=== PATIENT | female | born 1990 | race African-American/Black ===

== ENCOUNTER 2019-05-06 09:27 | Emergency (ER) | payer OTHER ==
[~2019-05-06] VITALS: Ht 160 cm; Wt 61.4 kg
[2019-05-06] MEDS ORDERED: prenatal vit (09:37)
--- NOTE | 2019-05-06 11:24 | REP ---
FIRST TRIMESTER ULTRASOUND: Real-time sonographic evaluation of the gravid uterus performed utilizing transabdominal and endovaginal technique. There is a single living intrauterine gestation, the estimated gestational age is 5 weeks 6 days based on a crown-rump length of 3 mm, EDC 12/31/2019. heart rate 117 beats per minute. There is no subchorionic hemorrhage. Cystic structure of the right ovary probably represents a corpus luteum 1.9 cm in diameter. There is no evidence of ovarian torsion. Electronically Signed by Marito Holcomb MD 05/07/2019 08:01 A
[2019-05-06 11:47] VITALS: BP 116/70
== END 2019-05-06 11:58 | disposition home or self-care (01) ==
LOC: EDBD 09:27 → M ED 09:27
DX: O99.89 Other specified diseases and conditions complicating pregnancy, childbirth and the puerperium (principal); R10.2 Pelvic and perineal pain; Z3A.01 Less than 8 weeks gestation of pregnancy

== ENCOUNTER 2019-10-16 09:50 | Outpatient (CLI) | payer OTHER ==
[~2019-10-16] VITALS: Ht 160 cm; Wt 74.0 kg
[~2019-10-16 09:50] MED LIST: prenatal vit
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
== END 2019-10-16 17:17 | disposition home or self-care (01) ==
LOC: M LDO 09:50
PROVIDERS: ATTEND Obstetrics & Gynecology
DX: O9A.213 Injury, poisoning and certain other consequences of external causes complicating pregnancy, third trimester (principal); Z3A.29 29 weeks gestation of pregnancy; T14.90XA Injury, unspecified, initial encounter; V49.40XA Driver injured in collision with unspecified motor vehicles in traffic accident, initial encounter
CPT/HCPCS: 59025; G0378; G0463

== ENCOUNTER 2019-12-25 04:34 | Inpatient (IN) | payer OTHER ==
[~2019-12-25] VITALS: Ht 162.6 cm; Wt 77.0 kg
[~2019-12-25 04:34] MED LIST changes: +KETOROLAC 30 MG/ML VIAL (J1885) IV SCH
[2019-12-25 05:03] VITALS: BP 105/59
[2019-12-25] MEDS ORDERED: LR 1,000 ML IV ONE (06:45)
[2019-12-25] MEDS ORDERED: LACTATED RINGER'S 1000 ML IV SCH (07:00)
[2019-12-25 07:50] VITALS: BP 108/59
[2019-12-25] MEDS: LR 1,000 ML IV SCH ×2 (07:50→13:20)
--- NOTE | 2019-12-25 07:54 | HPE ---
DATE OF ADMISSION: 12/25/2019 29-year-old, 3, para 1, abortio 1, last menstrual period (LMP) 03/22/2019, expected date of confinement (EDC) 12/27/2019, at 39 and 5 weeks of gestation who came in with history of contractions, no loss of fluid, no vaginal bleeding. She has a history of previous section and requested a trial of labor after (TOLAC). Risk factors are she has had a previous section for failure to descend and she is an AGDM 1. PAST HISTORY: In 2017, at 39 and 5 weeks, section, female, 3800 grams, high presenting part not in the pelvis. In 2019, spontaneous . LABS: B+, HIV negative, hepatitis negative, RPR negative, rubella immune, varicella immune. Pap normal. Urine negative. GBS negative. 1-hour glucose was 149. 3-hour GTT fasting was 79, 1-hour 182, 2-hour 159, and 3-hour 72. Gonorrhea and chlamydia are negative. EXAMINATION: She appears distressed. Symphysis fundus height is 40. Scar is intact. On pelvic examination, there is nothing in the pelvis, very posterior, finger to 1-2 cm. No loss of fluid or vaginal bleeding. We in fact did an ultrasound with the vertex to the patient's left, it is not in the pelvis. AMBIKA in three quadrants was normal. She was unable to void for the last hour and a half that she was here. When she did void, she has 3+ ketones, pH of 5 and blood. Her blood pressure is 102/59, respirations are 16, pulse is 107, and temperature 97.8. DIAGNOSIS: She is significantly dehydrated. Eventually, when she did void it is bright orange. PLAN: Our plan is to hydrate her with an IV and continue IV fluids until her ketones are negative. Should her contractions settle down, we will discharge her. Her due date is 12/27/2019. She will be seen in the office for induction of labor at 41 weeks. If she continues to contract and makes any kind of progress, she will be kept in house.
[2019-12-25 10:16] VITALS: BP 115/65
--- NOTE | 2019-12-25 12:12 | IPNPDOC ---
Text Note Date of Service The patient was seen on 12/25/19. NOTE patient is a 29 yo @ 39+5wks currently under observation for contractions. patient i having regular painful contraction. history of prior section. Patient initially desires TOLAC. This am patient is having painful contractions and she no longer desires to labor. She desires to have repeat section. vitals: normal having painful contractions fht: 145/mod heather/pos accel/no decel toco: ctx q 2-3mins ce: /high a/p Patient in early labor. discussed s/s to return. Schedule for repeat section. DO Farheen VS,Doylebone, I+O VS, Fishbone, I+O Vital Signs Date Time Temp Pulse Resp B/P (MAP) Pulse Ox O2 Delivery O2 Flow Rate FiO2 12/25/19 10:16 98.7 115 16 115/65 (82) FABIÁN BAEZ DO Dec 25, 2019 12:12
[2019-12-25 13:19] VITALS: BP 114/63
[2019-12-25] MEDS ORDERED: BICITRA 30ML SOLN UDC PO ONE (14:15)
[2019-12-25] MEDS ORDERED: ceFAZolin SOD 2 GM in IV 1 EA IV ONE (14:15)
[2019-12-25 14:32] LABS: HEMATOCRIT 38.9 % (36.0-47.0); HEMOGLOBIN 12.8 g/dl (12.0-15.5); MEAN CORPUSCULAR HEMOGLOBIN 32.8 pg (27.0-33.0); MEAN CORPUSCULAR HGB CONC 32.9 g/dl (32.0-36.5); MEAN CORPUSCULAR VOLUME 99.7 fl (80.0-96.0); PLATELET COUNT, AUTOMATED 180 10^3/uL (150-450); WHITE BLOOD COUNT 9.4 10^3/uL (4.0-10.0)
[2019-12-25] MEDS ORDERED: BUTORPHANOL 2 MG/ML INJ (J0595) IV ONE (15:15)
[2019-12-25] MEDS ORDERED: PROMETHAZINE INJ 25 MG/ML VIAL (J2550) IV ONE (15:15)
--- NOTE | 2019-12-25 15:29 | HPEPDOC ---
Obstetrical History & Physical General Date of Admission Dec 25, 2019 at 12:42 History of Present Illness patient is a 29 yo @39+5wks gestation with history of prior delivery desiring repeat delivery. patient reports regular painful contractions. denies LOF/VB. 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 BREAST: . ABDOMEN: Gravid and non-tender to touch. FETUS: Is vertex (VTX) by sterile vaginal examination (SVE), fetus is vertex (VTX) by Alberto. HEART RATE: Regular rate and rhythm. LUNGS: Clear to auscultation (CTA). EXTREMITIES: No edema/erythema/tenderness EFW: 3600gm Vital Signs/I&O Vital Signs Date Time Temp Pulse Resp B/P (MAP) Pulse Ox O2 Delivery O2 Flow Rate FiO2 12/25/19 10:16 98.7 115 16 115/65 (82) Laboratory Data 24H LABS Laboratory Tests 2 12/25/19 13:47: Serology Scanned Report Hepatitis B Testing 12/25/19 14:23: Nucleated Red Blood Cells % (auto) 0.0 CBC/BMP Laboratory Tests 12/25/19 14:23 Pertinent Laboratoy Data Blood Type: B+ RBC Antibody Screen: Negative HIV: Unknown Hepatitis B: Negative Rapid Plasma Reagin: Nonreactive Rubella: Immune Varicella: Immune Chlamydia/Gonorrhea: Negative Group B Streptococcus: Negative Glucose Tolerance Test: 149 (3hr: 79:182: 159:72) Anatomy Ultrasound Placenta Location: Anterior Vaginal Examination Dilation: 1cm Effacement: 80% Station: -2 Cervical Consistency: Soft Cervical Position: Posterior Presentation: Cephalic presentation Assessment Heart Rate (FHR): 145 Variability: Moderate Accelerations: Positive Decelerations: None Tocometer Frequency: every 1-5 min., every 2-5 min. Assessment/Plan Assessment patient is a 29 yo @ 39+5wks with h/o prior delivery desiring repeat delivery. Discussed with patient slower recovery with section. Risk of infection, bleeding requiring blood transfusion, injuring to surrounding organs, hysterectomy, need for repeat surgery and chronic pain discussed with patient. Plan Admit and orient. Mh Teacher and consent. Diet: NPO Group B Streptococcus (GBS) [negative]. Labs and intravenous (IV) per unit protocol. Ancef for antibiotic anesthesia consult back to OR once patient and team ready. FABIÁN BAEZ DO Dec 25, 2019 15:29
[2019-12-25] MEDS ORDERED: MORPHINE PRES-FREE INJ 10 MG/10 ML VIAL (J2274) As Ordered ONE (19:52)
[2019-12-25] MEDS ORDERED: OXYTOCIN INJ 10 UNITS/ML VIAL (J2590) As Ordered ONE (19:52)
[2019-12-25] MEDS ORDERED: METOCLOPRAMIDE INJ 10MG/2ML VIAL (J2765) IV PRN (20:13)
[2019-12-25] MEDS ORDERED: NALOXONE INJ 0.4 MG/1 ML VIAL (J2310) IV PRN ×2 (20:13)
[2019-12-25] MEDS ORDERED: ONDANSETRON 4MG/2ML VIAL (J2405) IV PRN (20:13)
[2019-12-25] MEDS ORDERED: NALBUPHINE HCL 10 MG/ML AMP (J2300) IV PRN (20:13)
[2019-12-25] MEDS ORDERED: diphenhydrAMINE INJ 50MG/ML VIAL (J1200) IV PRN (20:13)
[2019-12-25] MEDS ORDERED: dexameTHASONE 4 MG/ML 1ML VIAL (J1100) As Ordered ONE (20:43)
[2019-12-25] MEDS ORDERED: ePHEDrine SULFATE 25 MG/5 ML(5MG/ML) SYRINGE As Ordered ONE (20:43)
[2019-12-25] MEDS ORDERED: ONDANSETRON 4MG/2ML VIAL (J2405) As Ordered ONE (20:43)
[2019-12-25] MEDS ORDERED: KETOROLAC 60 MG/2 ML VIAL (J1885) As Ordered ONE (20:43)
[2019-12-25] MEDS ORDERED: PHENYLephrine HCL 500 MCG/5 ML (100MCG/ML) SYRINGE (J2370) As Ordered ONE (20:43)
[2019-12-25] MEDS ORDERED: OXYTOCIN DRIP 30 UNITS in IV 1 EA IV SCH (21:21)
[2019-12-25] MEDS ORDERED: MEASLES,MUMPS,RUBELLA VACCINE INJ (MMR-II) (90707) SC SCH (21:30)
[2019-12-25] MEDS ORDERED: RHOGAM 300 MCG (1500 IU) INJ (J2790) IM SCH (21:30)
[2019-12-25] MEDS ORDERED: PERCOCET 5MG/325MG TAB PO PRN ×2 (21:30)
--- NOTE | 2019-12-25 21:31 | DNPDOC ---
[facility] Delivery Note Delivery Note DATE OF DELIVERY: 12/25/2019 PREDELIVERY DIAGNOSIS: 39+5/7 weeks' gestation and labor. POST DELIVERY DIAGNOSIS: Delivered. PROCEDURE: Repeat low transverse section VISUAL MANAGER: Dr. Fabián Zhong DO ANESTHESIA: Spinal ESTIMATED BLOOD LOSS: 600mL. FINDINGS: 9 pound 3 ounce, 4170gm male , Score 9/9. DELIVERY SUMMARY: uncomplicated repeat low transverse section. see operative note for details. FABIÁN ZHONG DO Dec 25, 2019 21:31
--- NOTE | 2019-12-25 22:26 | POST-OPPD ---
Postoperative Procedure Note Date Of Procedure: Dec 25, 2019 PREOPERATIVE DIAGNOSIS: 1) Gravid at 39+5wks gestation 2) History of prior delivery desiring repeat POSTOPERATIVE DIAGNOSIS: status post delivery FINDINGS: normal appearing uterus, bilateral ovaries and fallopian tubes PROCEDURE: Repeat low transverse section SURGEON: Fabián Zhong DO COLORING MACHINE OPERATOR: Génesis Peña MD ANESTHESIA: Spinal SPECIMENS: none ESTIMATED BLOOD LOSS: 600cc REPLACED: 1600cc LR DRAINS: 100cc urine COMPLICATIONS: none POSTOPERATIVE CONDITION: stable Description of procedure: The risks, benefits, indications and alternatives to the procedure were reviewed with the patient and informed consent was obtained. Spinal anesthesia was dosed for surgical analgesic. She was prepped and draped in the normal sterile fashion in the dorsal supine position with a leftward tilt. The abdomen was entered through a pfannenstiel incision. Sharp dissection taken down to fascia layer. Fascia layer entered sharply and carried lateral and upward bilaterally. Superior border of fascia grasp with Krockers x 2 and a space between fascia and rectus muscle created bluntly and sharply. There was dense adhesions between fascia and rectus muscle. Inferior fascia layer grasp with Krockers x 2 and fascia from rectus muscle bluntly and sharply. Midline rectus muscle entered sharply with metzenbaum scissors. Peritoneum entered sharply between rectus muscles. The rectus muscles and peritoneum bluntly along midline and exposes the gravid uterus. The Mobius retractor placed intraabdominal. The vesicouterine peritoneum was identified. Vivar uterine incision made. The uterine incision was extended superolaterally. Head delivered through the hysterotomy. The anterior and posterior shoulders delivered followed by body with ease. The cord was clamped and cut. The infant was handed off to warmer. Pitocin bolus started. The placenta delivered spontaneously. Uterus exteriorized. The uterus was cleared of all clots and debris. The uterine incision was repaired with 2 layers with 0chromic in a running locking fashion and 0 monocryl imbricating layer. Hysterotomy inspected to be hemostatic. Uterus placed intraabdominal. Mobius retractor removed. The peritoneum, fascia and muscle bellies were inspected and noted to be hemostatic. The peritoneum brought back together midline with 3-0 vicryl. The fascia approximated with 0 vicryl suture in a running fashion. The subcutaneous tissue closed with 3-0 vicryl. The skin was closed with subcuticular 4-0 Monocryl. Dressing applied. The vagina was cleared of clots. Sponge laps, needle and instruments count correct x 2. Patient taken to recovery room in stable condition. FABIÁN ZHONG DO Dec 25, 2019 22:26
[2019-12-25 23:00] VITALS: BP 118/72
[2019-12-25 23:30] VITALS: BP 116/62
[2019-12-26] VITALS (8 sets, daily range): BP systolic 99–122; BP diastolic 54–72
[2019-12-26] MEDS ORDERED: miSOPROStol 200 MCG TAB (S0191) As Ordered ONE (00:17)
[2019-12-26] MEDS: KETOROLAC 30 MG/ML VIAL (J1885) IV SCH ×3 (02:02→18:03)
--- NOTE | 2019-12-26 07:09 | IPNPDOC ---
Progress Note Date of Service: Dec 26, 2019 Day#: 1 Progress Note SUBJECT: Patient is a 29 yo s/p RLTCD PPD #1. She has no concerns this AM. Pain is well controlled. She has been ambulating, and tolerating regular diet. Breast feeding without issue. Reports lochia is light. siddiqi out this am. Declined contraceptive OBJECTIVE: VITAL SIGNS: Within normal limits, afebrile. Alert and oriented times three. Abdomen: Fundus firm at U-2. Soft, NTTP. le: no edema/erythema/tenderness A/P patient pod #1, doing well. encourage bf. discussed contraceptive options and recommend 18months after ceasarean section before next . due to void later this AM. routine post operative care. anticipate d/c home ppd #2. DO Farheen VS, I&O, 24H, Fishbone Vital Signs/I&O Vital Signs Date Time Temp Pulse Resp B/P (MAP) Pulse Ox O2 Delivery O2 Flow Rate FiO2 12/26/19 06:32 97.8 75 18 111/66 (81) 100 12/25/19 21:22 Room Air I&O- Last 24 Hours up to 6 AM 12/26/19 06:00 Intake Total 5550 ml Output Total 5125 ml Balance 425 ml Laboratory Data 24H LABS Laboratory Tests 2 12/25/19 13:47: Serology Scanned Report Hepatitis B Testing 12/25/19 14:22: 12/25/19 14:23: Nucleated Red Blood Cells % (auto) 0.0 CBC/BMP Laboratory Tests 12/25/19 14:23 FABIÁN BAEZ DO Dec 26, 2019 07:09
[2019-12-26 08:15] LABS: HEMATOCRIT 35.6 % (36.0-47.0); HEMOGLOBIN 11.5 g/dl (12.0-15.5); MEAN CORPUSCULAR HGB CONC 32.3 g/dl (32.0-36.5); PLATELET COUNT, AUTOMATED 177 10^3/uL (150-450); RED BLOOD COUNT 3.49 10^6/uL (4.00-5.40); WHITE BLOOD COUNT 10.6 10^3/uL (4.0-10.0)
[2019-12-26] MEDS: PRENATAL VITAMINS CHEWABLE TABLET PO SCH (08:27)
[2019-12-26] MEDS ORDERED: KETOROLAC 30 MG/ML VIAL (J1885) As Ordered ONE (17:37)
[2019-12-26] MEDS: IBUPROFEN 800 MG TAB PO SCH (22:45)
[2019-12-27 02:24] VITALS: BP 111/67
[2019-12-27 06:15] VITALS: BP 101/58
[2019-12-27] MEDS: IBUPROFEN 800 MG TAB PO SCH (06:30)
[2019-12-27] MEDS ORDERED: IBUP80TA PO (07:06)
[2019-12-27] MEDS ORDERED: PERCOCET PO ×2 (07:06)
[2019-12-27] MEDS ORDERED: PRENCHW PO (07:06)
[2019-12-27] MEDS: PRENATAL VITAMINS CHEWABLE TABLET PO SCH (08:26)
--- NOTE | 2019-12-27 08:54 | DSES ---
DATE OF ADMISSION: 12/25/2019 DATE OF DISCHARGE: 12/27/2019 This lady is a 29-year-old, 3, para 2, was admitted in spontaneous labor, requested a trial of labor after (TOLAC) but after awhile decided she wanted to have a repeat section. She had a previous section for cephalopelvic disproportion and failure to descend. She had a repeat section live male , 9 pounds 3 ounces (4170 grams), score of 9 and 9 at one and five minutes, respectively. On her second day we discussed phlebitis, cystitis, mastitis, endometritis and cellulitis, diet, exercise, pain management, perineal, breast and wound care. Medication she was given a prescription to followup at the [facility] pharmacy. Her admitting hemoglobin was 12.8, hematocrit 38.9, and platelets were 180 and her discharge hemoglobin 11.5, hematocrit 35.6, and platelets were 177. The rest of the examination is unremarkable. She is normocephalic, atraumatic. Neck full range of motion. Pupils equal and reactive to light. Distal pulses symmetric. No evidence of deep venous thrombosis (DVT), pulmonary embolism (PE) or superficial phlebitis. Chest is clear bilaterally bases. No wheezes or rhonchi. No costovertebral angle (CVA) tenderness. Abdomen soft, uterus two below, lochia is moderate. Four quadrant bowel sounds are noted. Incision is clean and dry. No rashes, lesions or pruritus. No arthralgia or myalgia. No complaint joint pain. No complaint of cough, wheeze, shortness of breath or dyspnea on exertion. No nausea, vomiting, diarrhea or constipation. No urgency or frequency. Blood pressure on discharge is 101/58, respirations are 20, pulse 84, temperature is 98.8. The patient was given prescriptions to followup with the [facility] pharmacy. She was given a 2 week incisional check and 6 week check. She was noted to be in GDM 1, diet controlled. Therefore, she will have a repeat 1-hour glucose 50 grams at her 6 or 8 week checkup. In summary, we have a term gestation delivered a live male . Breast feeding is going well. All questions were answered. 30 minute discussion. edited: 12/29/2019 0722 cookie RESENDIZ
== END 2019-12-27 13:40 | disposition home or self-care (01) | DRG 773 ==
LOC: M LDO 04:34 → M LDI 12:42 → M OBS 22:58
PROVIDERS: ADMIT Obstetrics & Gynecology; ATTEND Obstetrics & Gynecology
PROC: 10D00Z1 Extraction of Products of Conception, Low, Open Approach (ICD-10-PCS; principal; 2019-12-25 19:16)
DX: O34.211 Maternal care for low transverse scar from previous cesarean delivery (principal); Z3A.39 39 weeks gestation of pregnancy; O24.420 Gestational diabetes mellitus in childbirth, diet controlled; E86.0 Dehydration; O99.284 Endocrine, nutritional and metabolic diseases complicating childbirth; Z37.0 Single live birth

== ENCOUNTER 2021-03-07 06:42 | Emergency (ER) | payer OTHER ==
[~2021-03-07] VITALS: Ht 160 cm; Wt 67.6 kg
[~2021-03-07 06:42] MED LIST changes: +IBUP80TA PO; -KETOROLAC 30 MG/ML VIAL (J1885) IV SCH; +PERCOCET PO; +PRENCHW PO
[2021-03-07] MEDS ORDERED: ACETAMINOPHEN 325 MG TAB PO ONE (07:45)
[2021-03-07] MEDS ORDERED: NS 1,000 ML IV ONE (07:45)
[2021-03-07 08:45] LABS: BASO # 0.1 10^3/uL (0.0-0.2); BASO % 0.8 % (0.0-1.0); EOS # 0.2 10^3/uL (0.0-0.5); EOS % 2.8 % (0.0-3.0); HEMATOCRIT 41.9 % (36.0-47.0); HEMOGLOBIN 13.3 g/dl (12.0-15.5); LYMPH # 2.6 10^3/uL (1.5-5.0); LYMPH % 43.1 % (24.0-44.0); MEAN CORPUSCULAR HGB CONC 31.7 g/dl (32.0-36.5); MONO # 0.5 10^3/uL (0.0-0.8); MONO % 8.5 % (2.0-8.0); NEUTROPHILS # 2.7 10^3/uL (1.5-8.5); NEUTROPHILS % 44.6 % (36.0-66.0); PLATELET COUNT, AUTOMATED 291 10^3/uL (150-450); RED BLOOD COUNT 4.15 10^6/uL (4.00-5.40)
[2021-03-07 09:13] LABS: HCG, SERUM QUALITATIVE NEGATIVE (NEGATIVE)
[2021-03-07 09:18] LABS: ALBUMIN 3.5 GM/DL (3.2-5.2); ALT/SGPT 26 U/L (12-78); BILIRUBIN,DIRECT 0.1 MG/DL (0.0-0.2); BILIRUBIN,TOTAL 0.2 MG/DL (0.2-1.0); BLOOD UREA NITROGEN 9 MG/DL (7-18); CALCIUM LEVEL 8.6 MG/DL (8.5-10.1); CARBON DIOXIDE LEVEL 32 MEQ/L (21-32); CHLORIDE LEVEL 106 MEQ/L (98-107); CK-MB VALUE MASS < 1.0 NG/ML (<3.6); CPK CREATINE PHOSPHOKINASE 67 U/L (26-192); GLOMERULAR FILTRATION RATE > 60.0 (>60); GLUCOSE, FASTING 96 MG/DL (70-100); LIPASE 129 U/L (73-393); MB/CK RELATIVE INDEX 1.49 (< OR =4); POTASSIUM SERUM 4.4 MEQ/L (3.5-5.1); SODIUM LEVEL 139 MEQ/L (136-145); TOTAL PROTEIN 7.3 GM/DL (6.4-8.2); TROPONIN I < 0.02 NG/ML (< 0.10)
[2021-03-07] MEDS ORDERED: KETOROLAC 30 MG/ML 1ML VIAL IV ONE (09:35)
[2021-03-07] MEDS ORDERED: NS 500 ML IV ONE (09:40)
--- NOTE | 2021-03-07 09:49 | REP ---
INDICATION: CHEST PAIN COMPARISON: None. TECHNIQUE: PA and lateral. FINDINGS: The mediastinum and cardiac silhouette are normal. The lung link are clear and without acute consolidation, effusion, or pneumothorax. The skeletal structures are intact and normal. IMPRESSION: No acute cardiopulmonary process. <Electronically signed by Michele Snow > 03/07/21 0946
[2021-03-07 10:30] VITALS: BP 114/62
--- NOTE | 2021-03-08 05:16 | ECGEPIP ---
[facility] - ED Test Date: 2021-03-07 Pat Name: SUSAN GARZA Department: Room: - Gender: Female Supervisor Assembling: : 1990 Requested By: DIONISIO Perea Order Number: [id number] Reading MD: Roberto Carlos Killian Measurements Intervals [place] Rate: 71 P: 56 WA: 162 QRS: 15 QRSD: 82 T: 40 QT: 370 QTc: 402 Interpretive Statements Normal sinus rhythm Comparison tracing not on file Electronically Signed on 03-08-2021 5:15:42 EDT by Roberto Carlos Killian
== END 2021-03-07 10:42 | disposition home or self-care (01) ==
LOC: M ED 06:42
DX: S29.011A Strain of muscle and tendon of front wall of thorax, initial encounter (principal); Y93.B3 Activity, free weights; Y92.9 Unspecified place or not applicable; Y99.9 Unspecified external cause status
CPT/HCPCS: 71046; 80048; 80076; 82550; 82553; 83690; 84484; 84703; 85025; 93005; 93041; 96361; 96374; 99285; J1885